=== PATIENT | male | born 1985 | race Caucasian/White ===

== ENCOUNTER 2019-07-09 10:22 | Emergency (ER) | payer BC ==
--- NOTE | 2019-07-09 10:50 | EDM.PDOC ---
ED HPI GENERAL MEDICAL PROBLEM - General Stated Complaint: SICK Time Seen by Provider: 07/09/19 10:45 Source of Information: Reports: Patient History Limitations: Reports: No Limitations - History of Present Illness INITIAL COMMENTS - FREE TEXT/NARRATIVE: 33-year-old male who reports beginning on 07/06/2019 she developed headache and cough while he was working. He also developed malaise and fatigue with directly fever or chills. The symptoms progressively worsened to the point that on Friday he was not able to work and basically he has been lying in bed or on the couch since that time. He has had nausea but no vomiting. He has had no bowel movement since before Friday. He has been urinating and feels that he has been urinating quite a lot but there has been no dysuria or hematuria. His headache was moderate to severe until today and it has essentially gone today. It was on the top of his head and a pounding and throbbing type headache. He has no pain now. He would rate his pain as a 0/10. There have been no body aches other than some back pain which is chronic and he currently does not even have the back pain at present. He has had no nasal congestion. No sore throat. No trouble swallowing. He has been taking liquids but he has had no appetite. He has been sleeping most of the time. Apparently he went to the clinic today and was noted to have a pulse rate in the 130s and was near syncopal and they sent him here for evaluation. There are people with "colds" in the house but he does not have any of these symptoms and none of them have any of his symptoms. He does work outside predominantly but he does not remember any tick exposures. He does report that for 5 years ago he had [id number]-mouth and "I got really sick like this when I had that". There are no other associated signs or symptoms. There are no other modifying factors. Onset: Other (07/06/2019) Duration: Getting Worse Location: Reports: Head (Previously), Other (No pain now) Quality: Reports: Other (Headache was pounding and throbbing but is gone now) Severity: Moderate Improves with: Reports: Rest Worsens with: Reports: Other (Standing), Movement Context: Reports: Other (As above) Associated Symptoms: Reports: Fever/Chills, Headaches, Loss of Appetite, Malaise , Nausea/Vomiting, Weakness Treatments DIRECTOR OF RESIDENTIAL SERVICES: Reports: Home Treatments - Related Data Allergies Allergy/AdvReac Type Severity Reaction Status Date / Time No Known Allergies Allergy Verified 07/09/19 10:47 Home Meds: Home Meds Doxycycline [Vibramycin] 100 mg PO BID 7 Days #14 cap 07/09/19 [Rx] Gabapentin [Neurontin] 300 mg PO BEDTIME 07/09/19 [History] Lisinopril 5 mg PO DAILY 07/09/19 [History] Past Medical History Cardiovascular History: Reports: Hypertension (Has not been taking his lisinopril for the past month or so) - Past Surgical History HEENT Surgical History: Reports: Oral Surgery ([place] teeth extraction) Social & Family History - Tobacco Use Smoking Status *Q: Never Smoker - Alcohol Use Alcohol Use History: Yes Alcohol Use Frequency: Daily (Be her) - Living Situation & Occupation Living situation: Reports: , with Spouse 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 Denies: Vomiting : Reports: Other (Increased urination). Denies: Dysuria, Hematuria Musculoskeletal: Reports: No Symptoms Skin: Reports: No Symptoms Neurological: Reports: Dizziness, Headache (Prior to today. Headache is gone now.) Hematologic/Lymphatic: Reports: No Symptoms Immunologic: Reports: No Symptoms ED EXAM, GENERAL - Physical Exam Exam: See Below Exam Limited By: No Limitations General Appearance: Alert, WD/WN, Moderate Distress Eye Exam: Bilateral Eye: EOMI, Normal Inspection, PERRL Ears: Normal External Exam, Hearing Grossly Normal Ear Exam: Bilateral Ear: Auricle Normal Nose: Normal Inspection, Normal Mucosa, No Blood Throat/Mouth: Normal Voice, No Airway Compromise, Other (No posterior pharyngeal erythema. He does have a dry mouth.) Head: Atraumatic, Normocephalic Neck: Normal Inspection, Supple, Non-Tender, Full Range of Motion, Other (No meningismus) Respiratory/Chest: No Respiratory Distress, Lungs Clear, Normal Breath Sounds, No Accessory Muscle Use, Chest Non-Tender Cardiovascular: Normal Peripheral Pulses, No Edema, No JVD, No Murmur, Tachycardia Peripheral Pulses: 2+: Radial (L), Radial (R), Dorsalis Pedis (L), Dorsalis Pedis (R) GI/Abdominal: Normal Bowel Sounds, Soft, Non-Tender, No Organomegaly, No Mass Back Exam: Normal Inspection, Full Range of Motion. No: CVA Tenderness (R), CVA Tenderness (L) Extremities: Normal Inspection, Normal Range of Motion, Non-Tender, No Pedal Edema, Normal Capillary Refill Neurological: Alert, Oriented, CN II-XII Intact, Normal Cognition, No Motor/ Sensory Deficits Skin Exam: Warm, Dry, Intact, Normal Color, No Rash Lymphatic: No Adenopathy EKG INTERPRETATION EKG Date: 07/09/19 Time: 10:40 Rhythm: NSR (Sinus tachycardia) Rate (Beats/Min): 116 [place]: Normal P-Wave: Present QRS: Normal ST-T: Normal QT: Normal Comparison: NA - No Prior EKG Course - Vital Signs Last Recorded V/S: Last Vital Signs Temp 36.8 C 07/09/19 12:14 Pulse 109 H 07/09/19 12:14 Resp 14 07/09/19 12:14 BP 145/94 H 07/09/19 12:14 Pulse Ox 100 07/09/19 12:14 Orthostatic Blood Pressure [ 138/94 Standing] Orthostatic Blood Pressure [ 148/105 Sitting] Orthostatic Blood Pressure [ 144/98 Supine] - Orders/Labs/Meds Orders: Active Orders 24 hr Category Date Time Status EKG Documentation Completion [RC] ASDIRECTED Care 07/09/19 10:54 Active Chest 2V [CR] Stat Exams 07/09/19 11:03 Taken A. PHAGOCYTOPHILUM PCR Routine Lab 07/09/19 11:30 Received LYME (B. BURGDORFERI) PCR Urgent Lab 07/09/19 11:30 Received Sodium Chloride 0.9% [Saline Flush] Med 07/09/19 11:03 Active 10 ml FLUSH ASDIRECTED PRN Peripheral IV Insertion Adult [OM.PC] Routine Oth 07/09/19 11:03 Ordered EKG 12 Lead [EK] Routine Ther 07/09/19 10:54 Ordered Medication Orders Sodium Chloride (Saline Flush) 10 ml FLUSH ASDIRECTED PRN PRN Reason: Keep Vein Open Last Admin: 07/09/19 11:43 Dose: 10 ml Labs: Laboratory Tests 07/09/19 07/09/19 07/09/19 Range/Units 11:10 11:30 11:30 WBC 6.6 (4.5-12.0) X10-3/uL RBC 5.46 (4.30-5.75) x10(6)uL Hgb 16.4 (13.5-17.8) g/dL Hct 48.6 (30.0-51.3) % MCV 88.9 (80-96) fL MCH 30.1 (27.7-33.6) pg MCHC 33.9 (32.2-35.4) g/dL RDW 11.6 (11.5-15.5) % Plt Count 366 (125-369) X10(3)uL MPV 8.3 (7.4-10.4) fL Neut % (Auto) 69.4 (46-82) % Lymph % (Auto) 23.4 (13-37) % [place] % (Auto) 6.4 (4-12) % Eos % (Auto) 0 L (1.0-5.0) % Baso % (Auto) 1 (0-2) % Neut # (Auto) 4.7 (1.6-8.3) # Lymph # (Auto) 1.5 (0.6-5.0) # [place] # (Auto) 0.4 (0.0-1.3) # Eos # (Auto) 0.0 (0.0-0.8) # Baso # (Auto) 0.0 (0.0-0.2) # Sodium 139 (135-145) mmol/L Potassium 3.7 (3.5-5.3) mmol/L Chloride 100 (100-110) mmol/L Carbon Dioxide 28 (21-32) mmol/L BUN 11 (7-18) mg/dL Creatinine 1.1 (0.70-1.30) mg/dL Est Cr Clr Drug Dosing 116.29 mL/min Estimated GFR (MDRD) > 60 (>60) BUN/Creatinine Ratio 10.0 (9-20) Glucose 95 (80-116) mg/dL Calcium 9.5 (8.6-10.2) mg/dL Magnesium 2.1 (1.8-2.5) mg/dL Total Bilirubin 0.9 (0.1-1.3) mg/dL AST 26 H (5-25) IU/L ALT 56 H (12-36) U/L Alkaline Phosphatase 106 (56-112) IU/L C-Reactive Protein (0.5-0.9) mg/dL Total Protein 8.0 (6.0-8.0) g/dL Albumin 4.0 (3.5-5.2) g/dL Globulin 4.0 g/dL Albumin/Globulin Ratio 1.0 Urine Color Yellow (YELLOW) Urine Appearance Clear (CLEAR) Urine pH 6.0 (5.0-6.5) Ur Specific [place] 1.010 (1.010-1.025) Urine Protein Negative (NEGATIVE) mg/dL Urine Glucose (UA) Normal (NORMAL) mg/dL Urine Ketones 15 H (NEGATIVE) mg/dL Urine Occult Blood Negative (NEGATIVE) Urine Nitrite Negative (NEGATIVE) Urine Bilirubin Negative (NEGATIVE) Urine Urobilinogen Normal (NEGATIVE) mg/dL Ur Leukocyte Esterase Negative (NEGATIVE) Urine WBC 0-5 (0-5) Ur Squamous Epith Cells Rare (NS,R,O) Urine Bacteria Few H (NS) 07/09/19 Range/Units 11:30 WBC (4.5-12.0) X10-3/uL RBC (4.30-5.75) x10(6)uL Hgb (13.5-17.8) g/dL Hct (30.0-51.3) % MCV (80-96) fL MCH (27.7-33.6) pg MCHC (32.2-35.4) g/dL RDW (11.5-15.5) % Plt Count (125-369) X10(3)uL MPV (7.4-10.4) fL Neut % (Auto) (46-82) % Lymph % (Auto) (13-37) % [place] % (Auto) (4-12) % Eos % (Auto) (1.0-5.0) % Baso % (Auto) (0-2) % Neut # (Auto) (1.6-8.3) # Lymph # (Auto) (0.6-5.0) # [place] # (Auto) (0.0-1.3) # Eos # (Auto) (0.0-0.8) # Baso # (Auto) (0.0-0.2) # Sodium (135-145) mmol/L Potassium (3.5-5.3) mmol/L Chloride (100-110) mmol/L Carbon Dioxide (21-32) mmol/L BUN (7-18) mg/dL Creatinine (0.70-1.30) mg/dL Est Cr Clr Drug Dosing mL/min Estimated GFR (MDRD) (>60) BUN/Creatinine Ratio (9-20) Glucose (80-116) mg/dL Calcium (8.6-10.2) mg/dL Magnesium (1.8-2.5) mg/dL Total Bilirubin (0.1-1.3) mg/dL AST (5-25) IU/L ALT (12-36) U/L Alkaline Phosphatase (56-112) IU/L C-Reactive Protein 0.6 (0.5-0.9) mg/dL Total Protein (6.0-8.0) g/dL Albumin (3.5-5.2) g/dL Globulin g/dL Albumin/Globulin Ratio Urine Color (YELLOW) Urine Appearance (CLEAR) Urine pH (5.0-6.5) Ur Specific [place] (1.010-1.025) Urine Protein (NEGATIVE) mg/dL Urine Glucose (UA) (NORMAL) mg/dL Urine Ketones (NEGATIVE) mg/dL Urine Occult Blood (NEGATIVE) Urine Nitrite (NEGATIVE) Urine Bilirubin (NEGATIVE) Urine Urobilinogen (NEGATIVE) mg/dL Ur Leukocyte Esterase (NEGATIVE) Urine WBC (0-5) Ur Squamous Epith Cells (NS,R,O) Urine Bacteria (NS) Meds: Medications Generic Name Dose Route Start Last Admin Trade Name Freq PRN Reason Stop Dose Admin Sodium Chloride 10 ml 07/09/19 11:03 07/09/19 11:43 Saline Flush FLUSH 10 ml ASDIRECTED PRN Administration Keep Vein Open Discontinued Medications Generic Name Dose Route Start Last Admin Trade Name Freq PRN Reason Stop Dose Admin Acetaminophen 1,000 mg 07/09/19 11:04 07/09/19 11:43 Tylenol Extra Strength PO 07/09/19 11:05 1,000 mg ONETIME ONE Administration Sodium Chloride 1,000 mls @ 999 mls/hr 07/09/19 11:15 07/09/19 12:39 Normal Saline IV 999 mls/hr .BOLUS ABI Administration Ondansetron HCl 4 mg 07/09/19 11:04 07/09/19 11:44 Zofran IVPUSH 07/09/19 11:05 Not Given ONETIME ONE - Radiology Interpretation Free Text/Narrative:: Chest x-ray PA and lateral shows no acute disease. - Re-Assessments/Exams Free Text/Narrative Re-Assessment/Exam: 07/09/19 13:10: The patient has received 1.5 L of normal saline IV thus far. He has also received Tylenol 1000 mg by mouth. He refused the Zofran IV. He states he still feels tired. He has no pain at present. He still has some nausea but no vomiting and he still refuses the Zofran. His pulse rate has come down into the 100-110 range. His labs are for the most part reassuring. He did have mild elevation in his AST and ALTs and his white blood cell count wall not level was in the lower range of normal. His urinalysis was normal. His chest x-ray was normal. He appears to have a viral illness. This could also be anaplasmosis. I did send testing for Lyme and for anaplasmosis. These results are pending at this point and will not be back until probably next week. At this point the patient does appear to be stable for discharge. He very much wants to go home. I will have the remaining IV fluids infused and I discussed the possibility of this being anaplasmosis with the patient and I would recommend treatment with doxycycline 100 mg twice daily at least until tick borne disease testing comes back. If this is anaplasmosis, he will have dramatic improvement in his symptoms within the next 24-36 hours. He is in favor of this and in favor of these plans for discharge. 07/09/19 13:40: Patient ambulated well. He still has dizziness is still reports he does not feel well but his vital signs were improved. Departure - Departure Time of Disposition: 13:45 Disposition: Home, Self-Care 01 Condition: Good (Stable) Clinical Impression: Dehydration, Viral syndrome - Discharge Information Prescriptions: Doxycycline [Vibramycin] 100 mg PO BID 7 Days #14 cap Instructions: Dehydration, Adult, [id number], Viral Illness, Adult Additional Instructions: Your chest x-ray was normal. Your urine test showed no evidence of infection. Your blood tests did show a mild elevation in your liver associated tests. As we discussed, this is not really pointing toward anything specifically your symptoms, it could be associated with a tick borne disease called anaplasmosis. I did send blood tests to check for anaplasmosis and for Lyme disease. These tests will not be back until next week. As we discussed, I recommend taking a trial of antibiotics (doxycycline 100 mg) to treat for this possibility at least until the tick borne blood tests comes back. You should continue to rest. You should increase your fluid intake. Take Tylenol 1000 mg by mouth every 6 hours as needed for pain or subjective fever. You may also take ibuprofen 600- 800 mg by mouth every 6-8 hours as needed for pain or subjective fever. Back to the emergency department for recurrent/worsening headache, vomiting, inability to take liquids, worsening of your symptoms or any other concerning sign or symptom. - My Orders Last 24 Hours: My Active Orders 07/09/19 10:54 EKG Documentation Completion [RC] ASDIRECTED EKG 12 Lead [EK] Routine 07/09/19 11:03 Chest 2V [CR] Stat Sodium Chloride 0.9% [Saline Flush] 10 ml FLUSH ASDIRECTED PRN Peripheral IV Insertion Adult [OM.PC] Routine 07/09/19 11:30 A. PHAGOCYTOPHILUM PCR Routine LYME (B. BURGDORFERI) PCR Urgent - Assessment/Plan Last 24 Hours: My Active Orders 07/09/19 10:54 EKG Documentation Completion [RC] ASDIRECTED EKG 12 Lead [EK] Routine 07/09/19 11:03 Chest 2V [CR] Stat Sodium Chloride 0.9% [Saline Flush] 10 ml FLUSH ASDIRECTED PRN Peripheral IV Insertion Adult [OM.PC] Routine 07/09/19 11:30 A. PHAGOCYTOPHILUM PCR Routine LYME (B. BURGDORFERI) PCR Urgent
[2019-07-09] MEDS ORDERED: Sodium Chloride 0.9% 10 ML Syringe FLUSH PRN (11:03)
[2019-07-09] MEDS ORDERED: Acetaminophen 500 MG Tab PO ONE (11:04)
[2019-07-09] MEDS ORDERED: Ondansetron 4 MG/2 ML SDV IVPUSH ONE (11:04)
[2019-07-09] MEDS: Sodium Chloride 0.9% 1,000 ML IV SCH ×2 (11:43→12:39)
--- NOTE | 2019-07-09 13:58 | CR ---
INDICATION: Cough, subjective fever. CHEST: PA and lateral views of the chest revealed the heart, mediastinum, and bony thorax to appear unremarkable. No consolidating pneumonia or effusion was seen. There appears to be some minimal probable post granulomatous scarring in the upper mid lung field on the right. IMPRESSION: No definite active disease. MTDD
== END 2019-07-09 13:57 | disposition home or self-care (01) ==
LOC: FB.ED 10:22
DX: E86.0 Dehydration (principal); B34.9 Viral infection, unspecified; I10 Essential (primary) hypertension; Z79.899 Other long term (current) drug therapy
CPT/HCPCS: 71046; 80053; 81001; 83735; 85025; 86140; 87476; 87798; 93005; 96360; 96361; 99284; A9270; J7030